=== PATIENT | female | born 1965 | race Caucasian/White ===

== ENCOUNTER → 2016-08-28 | Outpatient (REF) | payer BC ==
[~2016-08-28] MED LIST: ATEN100T PO; FISH100049 PO; OSTETAB3 PO; PERC5TAB6 PO; PROZ20CA11 PO; VITA-112 PO; ZYRT10CA PO
[2016-08-28 15:46] LABS: ALBUMIN 3.8 GM/DL (3.2-5.2); ALBUMIN/GLOBULIN RATIO 1.27 (1.00-1.93); ALKALINE PHOSPHATASE 99 U/L (45-117); ALT/SGPT 28 U/L (12-78); ANION GAP 9 MEQ/L (8-16); AST/SGOT 20 U/L (15-37); BILIRUBIN,TOTAL 0.3 MG/DL (0.2-1.0); BLOOD UREA NITROGEN 14 MG/DL (7-18); CALCIUM LEVEL 8.5 MG/DL (8.5-10.1); CARBON DIOXIDE LEVEL 26 MEQ/L (21-32); CHLORIDE LEVEL 106 MEQ/L (98-107); CHOLESTEROL LEVEL 209 MG/DL (<200); CREATININE FOR GFR 0.75 MG/DL (0.55-1.02); GLOMERULAR FILTRATION RATE > 60.0 (>58); GLUCOSE, FASTING 118 MG/DL (70-105); POTASSIUM SERUM 4.3 MEQ/L (3.5-5.1); SODIUM LEVEL 141 MEQ/L (136-145); TOTAL PROTEIN 6.8 GM/DL (6.4-8.2); TRIGLYCERIDES LEVEL 95 MG/DL (<150)
== END ==
LOC: M SFHCSACK 08:44
PROVIDERS: ATTEND Physician Assistant
DX: I10 Essential (primary) hypertension (principal); E78.2 Mixed hyperlipidemia; E55.9 Vitamin D deficiency, unspecified

== ENCOUNTER → 2017-01-31 | Outpatient (CLI) | payer BC, OTHER ==
[~2017-01-31] MED LIST changes: +PERC5TAB12 PO; -PERC5TAB6 PO
--- NOTE | 2017-01-31 16:26 | REPMRS ---
Patient History The patient states she had a clinical breast exam in January 2017. Family history of breast cancer in paternal grandmother at age 60. Digital Mammo Screening Bilat: January 31, 2017 - Exam #: [id number] Bilateral CC and MLO view(s) were taken. Technologist: Mely Elliott Technologist Prior study comparison: September 29, 2015, digital bilateral screening mammo performed at [facility]. FINDINGS: There are scattered fibroglandular densities. There has been no change in the appearance of the mammogram from the prior studies. There is a mild amount of residual fibroglandular tissue which is fairly symmetric. There is no interval development of dominant mass, architectural distortion, or clustered microcalcification suggestive of malignancy. ASSESSMENT: BI-RADS/ACR category 1 mammogram. Negative. Recommendation Routine screening mammogram in 1 year (for women over age 40). This mammogram was interpreted with the aid of an FDA-approved computer-aided dectection system. Electronically Signed By: Coleman Melgoza MD 01/31/17 [id number]
== END ==
LOC: M RAD 15:17
PROVIDERS: ATTEND Obstetrics & Gynecology
DX: Z12.31 Encounter for screening mammogram for malignant neoplasm of breast (principal)

== ENCOUNTER → 2017-02-26 | Outpatient (REF) | payer BC, OTHER ==
[2017-02-26 16:54] LABS: ALBUMIN 4.2 GM/DL (3.2-5.2); ALBUMIN/GLOBULIN RATIO 1.45 (1.00-1.93); ALKALINE PHOSPHATASE 100 U/L (45-117); ALT/SGPT 30 U/L (12-78); ANION GAP 9 MEQ/L (8-16); AST/SGOT 19 U/L (15-37); BILIRUBIN,TOTAL 0.4 MG/DL (0.2-1.0); BLOOD UREA NITROGEN 16 MG/DL (7-18); CALCIUM LEVEL 9.1 MG/DL (8.5-10.1); CARBON DIOXIDE LEVEL 28 MEQ/L (21-32); CHLORIDE LEVEL 106 MEQ/L (98-107); CHOLESTEROL LEVEL 224 MG/DL (<200); GLOMERULAR FILTRATION RATE > 60.0 (>51); GLUCOSE, FASTING 89 MG/DL (70-105); POTASSIUM SERUM 4.4 MEQ/L (3.5-5.1); SODIUM LEVEL 143 MEQ/L (136-145); TOTAL PROTEIN 7.1 GM/DL (6.4-8.2); TRIGLYCERIDES LEVEL 108 MG/DL (<150)
== END ==
LOC: M SFHCSACK 08:33
PROVIDERS: ATTEND Physician Assistant
DX: E78.2 Mixed hyperlipidemia (principal); I10 Essential (primary) hypertension; E55.9 Vitamin D deficiency, unspecified

== ENCOUNTER 2017-05-09 09:35 | Day surgery (SDC) | payer BC, OTHER ==
[~2017-05-09] VITALS: Ht 167.6 cm; Wt 79.7 kg
[2017-05-09] MEDS ORDERED: NS 1,000 ML IV ONE (11:00)
[2017-05-09] MEDS ORDERED: PROPOFOL 200 MG/20 ML VIAL As Ordered ONE (12:20)
[2017-05-09] MEDS ORDERED: LIDOCAINE 2% INJ 100 MG/5 ML SDV (FOR ANES.) As Ordered ONE (12:20)
--- NOTE | 2017-05-09 12:27 | ROOR ---
Patient Name: Cat Meza Procedure Date: 05/09/2017 12:14 PM Date of : 1965 Age: 52 Room: [facility] Gender: Female Note Status: Finalized Procedure: Colonoscopy Indications: Screening for colorectal malignant neoplasm Providers: Hayder BARROSO MD Referring MD: RADHA Daily Pa-c Requesting Provider: Medicines: Monitored Anesthesia Care Complications: No immediate complications. Procedure: Pre-Anesthesia Assessment: - The heart rate, respiratory rate, oxygen saturations, blood pressure, adequacy of pulmonary ventilation, and response to care were monitored throughout the procedure. The Colonoscope was introduced through the anus and advanced to the cecum, identified by appendiceal orifice and ileocecal valve. The colonoscopy was performed without difficulty. The patient tolerated the procedure well. The quality of the bowel preparation was good. Findings: The perianal and digital rectal examinations were normal. (Exam: Complete, Prep: Good or Excellent.) A 3 mm polyp was found in the ascending colon. The polyp was sessile. The polyp was removed with a cold snare. Resection and retrieval were complete. Mild diverticulosis and small internal hemorrhoids. The exam was otherwise without abnormality. Impression: - (Exam: Complete, Prep: Good or Excellent.) - One 3 mm polyp in the ascending colon, removed with a cold snare. Resected and retrieved. - Mild diverticulosis and small internal hemorrhoids. - The examination was otherwise normal. Recommendation: - Telephone endoscopist for pathology results in 2 weeks. - If the pathology report reveals adenomatous tissue, then repeat the colonoscopy for surveillance in 5 years. - If the pathology report indicates hyperplastic polyp, then repeat colonoscopy for screening purposes in 10 years. Hayder Barroso MD Hayder BARROSO MD 05/09/2017 12:26:44 PM This report has been signed electronically. Number of Addenda: 0 Note Initiated On: 05/09/2017 12:14 PM Estimated Blood Loss: Estimated blood loss: none.
[2017-05-09 13:01] VITALS: BP 136/97
== END 2017-05-09 13:00 | disposition home or self-care (01) ==
LOC: M OPP 09:35
PROVIDERS: ATTEND Internal Medicine Gastroenterology
DX: Z12.11 Encounter for screening for malignant neoplasm of colon (principal); D12.2 Benign neoplasm of ascending colon; K57.30 Diverticulosis of large intestine without perforation or abscess without bleeding; K64.8 Other hemorrhoids; I10 Essential (primary) hypertension; E78.5 Hyperlipidemia, unspecified; K58.0 Irritable bowel syndrome with diarrhea; M19.90 Unspecified osteoarthritis, unspecified site; F41.9 Anxiety disorder, unspecified; F32.9 Major depressive disorder, single episode, unspecified; Z88.8 Allergy status to other drugs, medicaments and biological substances; Z79.899 Other long term (current) drug therapy; Z80.6 Family history of leukemia

== ENCOUNTER → 2017-06-27 | Outpatient (REF) | payer OTHER ==
[2017-06-27 16:48] LABS: BASO % 0.3 % (0.0-1.0); HEMOGLOBIN 12.3 g/dl (12.0-16.0); IMMATURE GRANULOCYTE % 0.3 % (0-0); LYMPH % 29.2 % (24.0-44.0); MEAN CORPUSCULAR HEMOGLOBIN 29.7 pg (27.0-33.0); MEAN CORPUSCULAR HGB CONC 32.4 g/dl (32.0-36.5); MEAN CORPUSCULAR VOLUME 91.8 fl (80.0-96.0); MONO # 0.5 10^3/uL (0.0-0.8); MONO % 6.6 % (0.0-5.0); NEUTROPHILS # 4.3 10^3/uL (1.8-7.7); NEUTROPHILS % 63.6 % (36.0-66.0); PLATELET COUNT, AUTOMATED 257 10^3/uL (150-450); RED BLOOD COUNT 4.14 10^6/uL (4.00-5.40); RED CELL DISTRIBUTION WIDTH 13.8 % (11.5-14.5); WHITE BLOOD COUNT 6.8 10^3/uL (4.0-10.0)
[2017-06-27 21:07] LABS: ALBUMIN 3.7 GM/DL (3.2-5.2); ALBUMIN/GLOBULIN RATIO 1.16 (1.00-1.93); ALKALINE PHOSPHATASE 90 U/L (45-117); ALT/SGPT 29 U/L (12-78); ANION GAP 9 MEQ/L (8-16); AST/SGOT 16 U/L (7-37); BILIRUBIN,TOTAL 0.3 MG/DL (0.2-1.0); BLOOD UREA NITROGEN 10 MG/DL (7-18); CALCIUM LEVEL 8.5 MG/DL (8.5-10.1); CARBON DIOXIDE LEVEL 28 MEQ/L (21-32); CHLORIDE LEVEL 103 MEQ/L (98-107); CHOLESTEROL LEVEL 146 MG/DL (<200); CHOLESTEROL RISK RATIO 2.862 (<5); CREATININE FOR GFR 0.71 MG/DL (0.55-1.02); FREE T4 0.86 NG/DL (0.76-1.46); GLOMERULAR FILTRATION RATE > 60.0 (>51); GLUCOSE, FASTING 83 MG/DL (70-105); HDL CHOLESTEROL 51 MG/DL (>40); LDL CHOLESTEROL 71.2 MG/DL (<100); NON-HDL-C 95 MG/DL; POTASSIUM SERUM 4.2 MEQ/L (3.5-5.1); SODIUM LEVEL 140 MEQ/L (136-145); TOTAL PROTEIN 6.9 GM/DL (6.4-8.2); TRIGLYCERIDES LEVEL 119 MG/DL (<150)
== END ==
LOC: M SFHCSACK 10:19
DX: I10 Essential (primary) hypertension (principal); E78.2 Mixed hyperlipidemia; Z83.49 Family history of other endocrine, nutritional and metabolic diseases; E55.9 Vitamin D deficiency, unspecified

== ENCOUNTER → 2017-07-10 | Outpatient (CLI) | payer OTHER | LOC: M RAD 15:37 | DX: M17.0 Bilateral primary osteoarthritis of knee (principal) | CPT/HCPCS: 73564 ==

== ENCOUNTER → 2017-07-10 | Outpatient (CLI) | payer OTHER ==
[2017-07-12 14:15] LABS: TISSUE TRANSGLUTAMINASE IgA <2 U/mL (0-3)
== END ==
LOC: M LAB 15:33
DX: R19.4 Change in bowel habit (principal)
CPT/HCPCS: 82784

== ENCOUNTER → 2017-07-17 | Outpatient (CLI) | payer BC, OTHER | LOC: M RAD 06:39 | DX: R19.4 Change in bowel habit (principal); R10.9 Unspecified abdominal pain | CPT/HCPCS: 76705 ==

== ENCOUNTER → 2017-08-12 | Outpatient (CLI) | payer BC, OTHER ==
[~2017-08-12] MED LIST changes: -ATEN100T PO; -FISH100049 PO; +GLUCAGON FOR INJ 1 MG VIAL (J1610) As Ordered; +ISOVUE-370 76% 100ML VIAL (Q9967) As Ordered; -OSTETAB3 PO; -PERC5TAB12 PO; -PROZ20CA11 PO; -VITA-112 PO; +VoLumen 0.1% SUSPENSION 450ML BOTTLE As Ordered; -ZYRT10CA PO
== END ==
LOC: M RAD 13:29
DX: R19.7 Diarrhea, unspecified (principal); R10.10 Upper abdominal pain, unspecified

== ENCOUNTER → 2017-08-19 | Outpatient (REF) | payer OTHER | LOC: M LAB REF 09:58 | DX: R19.7 Diarrhea, unspecified (principal); R10.10 Upper abdominal pain, unspecified ==

== ENCOUNTER → 2018-01-05 | Outpatient (REF) | payer OTHER ==
[2018-01-05 14:36] LABS: BASO % 0.3 % (0.0-1.0); HEMATOCRIT 37.2 % (36.0-47.0); HEMOGLOBIN 12.3 g/dl (12.0-15.5); IMMATURE GRANULOCYTE % 0.3 % (0-3.0); LYMPH # 2.2 10^3/uL (1.5-4.5); LYMPH % 34.7 % (24.0-44.0); MEAN CORPUSCULAR HEMOGLOBIN 30.1 pg (27.0-33.0); MEAN CORPUSCULAR HGB CONC 33.1 g/dl (32.0-36.5); MEAN CORPUSCULAR VOLUME 91.2 fl (80.0-96.0); MONO # 0.5 10^3/uL (0.0-0.8); NEUTROPHILS # 3.7 10^3/uL (1.8-7.7); NEUTROPHILS % 57.7 % (36.0-66.0); PLATELET COUNT, AUTOMATED 220 10^3/uL (150-450); RED BLOOD COUNT 4.08 10^6/uL (4.00-5.40); RED CELL DISTRIBUTION WIDTH 13.7 % (11.5-14.5); WHITE BLOOD COUNT 6.4 10^3/uL (4.0-10.0)
[2018-01-05 15:14] LABS: ALBUMIN/GLOBULIN RATIO 1.25 (1.00-1.93); ALKALINE PHOSPHATASE 105 U/L (45-117); ALT/SGPT 55 U/L (12-78); ANION GAP 8 MEQ/L (8-16); AST/SGOT 31 U/L (7-37); BILIRUBIN,TOTAL 0.4 MG/DL (0.2-1.0); BLOOD UREA NITROGEN 16 MG/DL (7-18); CALCIUM LEVEL 8.9 MG/DL (8.5-10.1); CARBON DIOXIDE LEVEL 29 MEQ/L (21-32); CHLORIDE LEVEL 105 MEQ/L (98-107); CREATININE FOR GFR 0.75 MG/DL (0.55-1.30); GLOMERULAR FILTRATION RATE > 60.0 (>51); GLUCOSE, FASTING 82 MG/DL (70-100); POTASSIUM SERUM 4.6 MEQ/L (3.5-5.1); SODIUM LEVEL 142 MEQ/L (136-145); TOTAL PROTEIN 7.2 GM/DL (6.4-8.2)
== END ==
LOC: M SFHCSACK 09:15
DX: I10 Essential (primary) hypertension (principal); E78.2 Mixed hyperlipidemia

== ENCOUNTER → 2018-09-15 | Outpatient (REF) | payer OTHER ==
[~2018-09-15] MED LIST changes: +ATEN100T PO; +FISH100049 PO; -GLUCAGON FOR INJ 1 MG VIAL (J1610) As Ordered; -ISOVUE-370 76% 100ML VIAL (Q9967) As Ordered; +MECL-68 PO; +MOBI4TAB PO; +ONDA4TAB6 PO; +OSTETAB3 PO; +PERC5TAB12 PO; +PROZ20CA11 PO; +SIMV20TA2 PO; +TOPA1TAB PO; +VITA-112 PO; -VoLumen 0.1% SUSPENSION 450ML BOTTLE As Ordered; +ZYRT10CA PO
[2018-09-15 11:24] LABS: BASO % 0.5 % (0.0-1.0); HEMATOCRIT 38.8 % (36.0-47.0); HEMOGLOBIN 12.6 g/dl (12.0-15.5); LYMPH % 33.4 % (24.0-44.0); MEAN CORPUSCULAR HEMOGLOBIN 29.9 pg (27.0-33.0); MEAN CORPUSCULAR HGB CONC 32.5 g/dl (32.0-36.5); MEAN CORPUSCULAR VOLUME 92.2 fl (80.0-96.0); MONO # 0.4 10^3/uL (0.0-0.8); MONO % 6.8 % (0.0-5.0); NEUTROPHILS # 3.5 10^3/uL (1.8-7.7); PLATELET COUNT, AUTOMATED 195 10^3/uL (150-450); RED BLOOD COUNT 4.21 10^6/uL (4.00-5.40)
[2018-09-15 11:37] LABS: ALBUMIN 3.8 GM/DL (3.2-5.2); ALT/SGPT 34 U/L (12-78); BILIRUBIN,TOTAL 0.3 MG/DL (0.2-1.0); BLOOD UREA NITROGEN 16 MG/DL (7-18); CALCIUM LEVEL 8.9 MG/DL (8.5-10.1); CARBON DIOXIDE LEVEL 29 MEQ/L (21-32); CHLORIDE LEVEL 107 MEQ/L (98-107); CHOLESTEROL LEVEL 162 MG/DL (<200); CHOLESTEROL RISK RATIO 2.945 (<5); GLOMERULAR FILTRATION RATE > 60.0 (>51); GLUCOSE, FASTING 96 MG/DL (70-100); HDL CHOLESTEROL 55 MG/DL (>40); LDL CHOLESTEROL 88 MG/DL (<100); NON-HDL-C 107 MG/DL; POTASSIUM SERUM 4.4 MEQ/L (3.5-5.1); SODIUM LEVEL 140 MEQ/L (136-145); TOTAL 25(OH) VITAMIN D 29.2 NG/ML (30.0-100.0); TOTAL PROTEIN 6.6 GM/DL (6.4-8.2); TRIGLYCERIDES LEVEL 94 MG/DL (<150)
== END ==
LOC: M SFHCCLAY 07:17
PROVIDERS: ATTEND Physician Assistant
DX: I10 Essential (primary) hypertension (principal); E78.2 Mixed hyperlipidemia; Z83.49 Family history of other endocrine, nutritional and metabolic diseases; E55.9 Vitamin D deficiency, unspecified

== ENCOUNTER → 2019-03-29 | Outpatient (REF) | payer OTHER ==
[2019-03-29 11:23] LABS: BASO % 0.5 % (0.0-1.0); EOS % 0.2 % (0.0-3.0); HEMATOCRIT 38.6 % (36.0-47.0); HEMOGLOBIN 12.7 g/dl (12.0-15.5); LYMPH % 30.5 % (24.0-44.0); MEAN CORPUSCULAR HEMOGLOBIN 30.7 pg (27.0-33.0); MEAN CORPUSCULAR HGB CONC 32.9 g/dl (32.0-36.5); MEAN CORPUSCULAR VOLUME 93.2 fl (80.0-96.0); MONO # 0.5 10^3/uL (0.0-0.8); MONO % 7.1 % (0.0-5.0); NEUTROPHILS # 4.1 10^3/uL (1.5-8.5); NEUTROPHILS % 61.4 % (36.0-66.0); PLATELET COUNT, AUTOMATED 184 10^3/uL (150-450); RED BLOOD COUNT 4.14 10^6/uL (4.00-5.40); WHITE BLOOD COUNT 6.6 10^3/uL (4.0-10.0)
[2019-03-29 11:32] LABS: ALBUMIN 3.7 GM/DL (3.2-5.2); ALT/SGPT 27 U/L (12-78); BILIRUBIN,TOTAL 0.4 MG/DL (0.2-1.0); BLOOD UREA NITROGEN 17 MG/DL (7-18); CALCIUM LEVEL 8.6 MG/DL (8.5-10.1); CARBON DIOXIDE LEVEL 27 MEQ/L (21-32); CHLORIDE LEVEL 107 MEQ/L (98-107); CHOLESTEROL LEVEL 159 MG/DL (<200); CHOLESTEROL RISK RATIO 2.789 (<5); CREATININE FOR GFR 0.72 MG/DL (0.55-1.30); GLOMERULAR FILTRATION RATE > 60.0 (>51); GLUCOSE, FASTING 89 MG/DL (70-100); HDL CHOLESTEROL 57 MG/DL (>40); LDL CHOLESTEROL 82 MG/DL (<100); NON-HDL-C 102 MG/DL; POTASSIUM SERUM 4.4 MEQ/L (3.5-5.1); SODIUM LEVEL 140 MEQ/L (136-145); TOTAL PROTEIN 6.9 GM/DL (6.4-8.2); TRIGLYCERIDES LEVEL 102 MG/DL (<150)
[2019-03-29 11:41] LABS: TOTAL 25(OH) VITAMIN D 52.3 NG/ML (30.0-100.0)
== END ==
LOC: M SFHCCLAY 08:08
PROVIDERS: ATTEND Physician Assistant
DX: I10 Essential (primary) hypertension (principal); E78.2 Mixed hyperlipidemia; E55.9 Vitamin D deficiency, unspecified

== ENCOUNTER → 2019-04-20 | Outpatient (REF) | payer OTHER ==
[2019-04-20 18:03] LABS: BLOOD UREA NITROGEN 13 MG/DL (7-18); CREATININE FOR GFR 0.78 MG/DL (0.55-1.30); GLOMERULAR FILTRATION RATE > 60.0 (>51); RHEUMATOID FACTOR QUANT 11.8 IU/ML (<15.0); TOTAL PROTEIN 7.1 GM/DL (6.4-8.2)
[2019-04-20 18:14] LABS: TOTAL 25(OH) VITAMIN D 43.7 NG/ML (30.0-100.0)
[2019-04-20 18:15] LABS: FOLATE 8.9 NG/ML; VITAMIN B12 LEVEL 384 PG/ML
[2019-04-22 11:11] LABS: ALBUMIN % 63.4 % (55.8-66.1); ALPHA-1-GLOBULINS 0.28 GM/DL (0.17-0.41); ALPHA-2-GLOBULINS 0.67 GM/DL (0.42-0.99); ALPHA-2-GLOBULINS % 9.4 % (7.1-11.8); BETA-1-GLOBULINS % 5.7 % (4.7-7.2); BETA-2-GLOBULINS 0.34 GM/DL (0.19-0.55); BETA-2-GLOBULINS % 4.8 % (3.2-6.5); GAMMA GLOBULIN % 12.7 % (11.1-18.8)
== END ==
LOC: M LABNEURO 14:16
PROVIDERS: ATTEND Psychiatry & Neurology Neurology
DX: R26.9 Unspecified abnormalities of gait and mobility (principal); Z91.81 History of falling

== ENCOUNTER → 2019-10-29 | Outpatient (REF) | payer OTHER ==
[~2019-10-29] MED LIST changes: -MECL-68 PO; +MECL1TAB31 PO; -SIMV20TA2 PO; +SIMV20TA22 PO
[2019-10-29 12:11] LABS: BASO % 0.4 % (0.0-1.0); EOS % 0.2 % (0.0-3.0); HEMATOCRIT 40.4 % (36.0-47.0); HEMOGLOBIN 13.4 g/dl (12.0-15.5); LYMPH # 1.6 10^3/uL (1.5-5.0); LYMPH % 29.5 % (24.0-44.0); MEAN CORPUSCULAR HEMOGLOBIN 30.5 pg (27.0-33.0); MEAN CORPUSCULAR HGB CONC 33.2 g/dl (32.0-36.5); MEAN CORPUSCULAR VOLUME 91.8 fl (80.0-96.0); MONO # 0.5 10^3/uL (0.0-0.8); MONO % 8.5 % (0.0-5.0); NEUTROPHILS # 3.4 10^3/uL (1.5-8.5); NEUTROPHILS % 61.2 % (36.0-66.0); PLATELET COUNT, AUTOMATED 198 10^3/uL (150-450); WHITE BLOOD COUNT 5.6 10^3/uL (4.0-10.0)
[2019-10-29 12:35] LABS: TOTAL 25(OH) VITAMIN D 64.9 NG/ML (30.0-100.0)
[2019-10-29 12:48] LABS: ALT/SGPT 41 U/L (12-78); BILIRUBIN,TOTAL 0.4 MG/DL (0.2-1.0); BLOOD UREA NITROGEN 22 MG/DL (7-18); CALCIUM LEVEL 9.2 MG/DL (8.5-10.1); CARBON DIOXIDE LEVEL 27 MEQ/L (21-32); CHLORIDE LEVEL 106 MEQ/L (98-107); CHOLESTEROL LEVEL 150 MG/DL (<200); CHOLESTEROL RISK RATIO 2.727 (<5); GLOMERULAR FILTRATION RATE > 60.0 (>51); GLUCOSE, FASTING 90 MG/DL (70-100); HDL CHOLESTEROL 55 MG/DL (>40); LDL CHOLESTEROL 79 MG/DL (<100); NON-HDL-C 95 MG/DL; POTASSIUM SERUM 4.5 MEQ/L (3.5-5.1); SODIUM LEVEL 140 MEQ/L (136-145); TOTAL PROTEIN 7.2 GM/DL (6.4-8.2); TRIGLYCERIDES LEVEL 82 MG/DL (<150)
== END ==
LOC: M SFHCCLAY 08:11
PROVIDERS: ATTEND Physician Assistant
DX: I10 Essential (primary) hypertension (principal); E78.2 Mixed hyperlipidemia; F41.8 Other specified anxiety disorders; E55.9 Vitamin D deficiency, unspecified

== ENCOUNTER → 2020-03-25 | Outpatient (REF) | payer OTHER ==
[2020-03-25 14:08] LABS: APPEARANCE, URINE CLEAR (CLEAR); BACTERIA, URINE AUTO 1+ (NEGATIVE); BILIRUBIN, URINE AUTO NEGATIVE (NEGATIVE); BLOOD, URINE BLOOD NEGATIVE (NEGATIVE); COLOR, URINE COLORLESS (YELLOW); GLUCOSE, URINE (UA) AUTO NEGATIVE (NEGATIVE); KETONE, URINE AUTO NEGATIVE (NEGATIVE); LEUKOCYTE ESTERASE, URINE AUTO NEGATIVE (NEGATIVE); NITRITE, URINE AUTO NEGATIVE (NEGATIVE); PROTEIN, URINE AUTO NEGATIVE (NEGATIVE); RBC, URINE AUTO 0 /HPF (0-3); SPECIFIC GRAVITY URINE AUTO 1.001 (1.002-1.035); SQUAMOUS EPITHELIAL CELL UR AU 1 /HPF (0-6); UROBILINOGEN, URINE AUTO 0.2 mg/dL (0.0-2.0); WBC, URINE AUTO 0 /HPF (0-3)
== END ==
LOC: M LAB REF 11:20
PROVIDERS: ATTEND Physician Assistant Medical
DX: N39.0 Urinary tract infection, site not specified (principal)

== ENCOUNTER → 2020-03-29 | Outpatient (CLI) | payer BC, OTHER ==
--- NOTE | 2020-03-29 14:28 | REP ---
INDICATION: GENERALIZED ABDOMINAL PAIN COMPARISON: None. TECHNIQUE: Upright view of the chest with supine and upright views of the abdomen and pelvis. FINDINGS: Frontal upright view of the chest demonstrates no acute cardiopulmonary process or free air below the diaphragm to suspect pneumoperitoneum. Supine and upright views of the abdomen and pelvis demonstrate nonspecific bowel gas pattern without obstruction or perforation. No organomegaly. No abnormal calcifications. Skeletal structures normal for age. IMPRESSION: Nonspecific bowel gas pattern. <Electronically signed by Faizan Palmer > 03/29/20 [id number]
[2020-03-29 14:47] LABS: BASO % 0.3 % (0.0-1.0); EOS % 0.2 % (0.0-3.0); HEMATOCRIT 40.7 % (36.0-47.0); LYMPH % 32.6 % (24.0-44.0); MEAN CORPUSCULAR HGB CONC 31.9 g/dl (32.0-36.5); MEAN CORPUSCULAR VOLUME 90.8 fl (80.0-96.0); MONO # 0.5 10^3/uL (0.0-0.8); MONO % 7.4 % (0.0-5.0); NEUTROPHILS # 3.7 10^3/uL (1.5-8.5); NEUTROPHILS % 59.2 % (36.0-66.0); PLATELET COUNT, AUTOMATED 227 10^3/uL (150-450); RED BLOOD COUNT 4.48 10^6/uL (4.00-5.40); WHITE BLOOD COUNT 6.3 10^3/uL (4.0-10.0)
[2020-03-29 15:18] LABS: BLOOD UREA NITROGEN 13 MG/DL (7-18); CARBON DIOXIDE LEVEL 31 MEQ/L (21-32); CHLORIDE LEVEL 103 MEQ/L (98-107); CREATININE FOR GFR 0.76 MG/DL (0.55-1.30); GLOMERULAR FILTRATION RATE > 60.0 (>51); GLUCOSE, FASTING 76 MG/DL (70-100); POTASSIUM SERUM 4.6 MEQ/L (3.5-5.1); SODIUM LEVEL 138 MEQ/L (136-145)
[2020-03-29 15:19] LABS: ALBUMIN 4.2 GM/DL (3.2-5.2); ALT/SGPT 29 U/L (12-78); AMYLASE 64 U/L (25-115); BILIRUBIN,TOTAL 0.5 MG/DL (0.2-1.0); CALCIUM LEVEL 9.9 MG/DL (8.5-10.1); LIPASE 342 U/L (73-393); TOTAL PROTEIN 7.8 GM/DL (6.4-8.2)
== END ==
LOC: M LAB 13:29
PROVIDERS: ATTEND Physician Assistant Medical
DX: R10.84 Generalized abdominal pain (principal); R19.7 Diarrhea, unspecified; R11.0 Nausea

== ENCOUNTER → 2020-03-31 | Outpatient (REF) | payer BC, OTHER | LOC: M LAB REF 16:29 | PROVIDERS: ATTEND Physician Assistant Medical | DX: R19.7 Diarrhea, unspecified (principal) ==

== ENCOUNTER → 2020-04-10 | Outpatient (CLI) | payer BC, OTHER ==
[~2020-04-10] MED LIST changes: +GASTROGRAFIN SOLUTION 30ML (Q9963) As Ordered ONE; +ISOVUE-370 76% 100ML VIAL As Ordered ONE
--- NOTE | 2020-04-10 13:32 | REP ---
INDICATION: GENERALIZED ABDONIMAL PAIN FILE ROOM. COMPARISON: CT enterography 08/12/2017 abdominal series 03/29/2020 TECHNIQUE: Isovue 371 mL given by IV with scanning through the abdomen and pelvis before and after contrast. Pole Gastrografin 10 mL and 290 mL flavum water for 2 doses per our protocol. FINDINGS: CT abdomen: Of the lung bases show minor dependent atelectatic changes but are otherwise clear there is no hiatal hernia. Stomach well distended with oral contrast contrast seen throughout small bowel loops and into the sigmoid. There is no fatty change liver. I see no hepatosplenomegaly, focal or Paddock mass, intrahepatic biliary dilatation or adjacent ascites. Gallbladder without calcified stone or mass. Pancreas is unremarkable. Adrenal glands are normal. Kidneys show symmetric enhancement without mass, cyst, stone or hydronephrosis. The aorta is without aneurysm or dissection. Small bowel loops are contrast or fluid-filled but not abnormally dilated and showing no air-fluid levels. Appears to be some thickening of the wall of the distal and terminal ileum into the ileocecal valve region I do not see pathologic adenopathy about the pericecal region. Evidence for prior appendectomy. There is no pathologic sized periaortic, mesenteric or other retroperitoneal adenopathy evident. Is no free fluid in the abdomen or free air. Bone windows show lumbar and lower thoracic vertebral bodies and posterior elements grossly intact and normal for age. Visualized ribs intact CT pelvis: Sacrum, SI joints and left iliac wing or unremarkable the right iliac bone has a small sclerotic bone island in its mid portion adjacent to the sacrum. This is stable has steadily hips and pubic bone unremarkable the distal left colon and sigmoid show some scattered diverticula without signs of diverticulitis. Some muscular hypertrophy also suggested. Uterus absent there is no mass about the vaginal cuff. No pelvic mass or free fluid. Small bowel loops without dilatation. The distal ileum and terminal ileum shows some slight wall thickening as a nonspecific finding no adjacent inflammatory change no ventral or inguinal hernia no pathologic sized inguinal adenopathy. No deep pelvic adenopathy. IMPRESSION: 1. Some mild thickening of the wall of the distal and terminal ileum without adjacent inflammatory change. This may reflect some very mild inflammatory bowel disease involving the terminal ileum. No adjacent adenopathy or fluid collections. Remainder of small bowel intact 2. The left colon and sigmoid showed some diverticulosis and muscular hypertrophy without diverticulitis the colitis stricture or mass 3. No other significant findings. <Electronically signed by Dilan Hubbard > 04/10/20 [id number]
== END ==
LOC: M RAD 08:04
PROVIDERS: ATTEND Physician Assistant Medical
DX: R10.9 Unspecified abdominal pain (principal)

== ENCOUNTER → 2020-05-02 | Outpatient (CLI) | payer BC ==
[~2020-05-02] MED LIST changes: -GASTROGRAFIN SOLUTION 30ML (Q9963) As Ordered ONE; -ISOVUE-370 76% 100ML VIAL As Ordered ONE
--- NOTE | 2020-05-02 15:42 | REP ---
INDICATION: JHON SCR MAMMO/Z12.39. COMPARISON: 01/31/2017 and 09/29/2015. TECHNIQUE: MLO and CC views of both breasts performed with tomosynthesis. FINDINGS: There is mild fibroglandular tissue scattered bilaterally. There is no change in the parenchymal pattern with no new mass or architectural distortion. Few tiny calcifications are seen posterolaterally in the left breast, for which magnification views are recommended. The Volpara volumetric breast density pattern is A. IMPRESSION: BIRADS/ACR category 0 incomplete. Few tiny calcifications posterolaterally in the left breast. Recommend magnification views to further evaluate. This patient's Tyrer-Cuzick lifetime breast cancer risk assessment score is 14.9%. Family history of breast cancer at age 60 in paternal grandmother. This mammogram was interpreted with the aid of an FDA-approved computer-aided detection system. The patient states she had a clinical breast exam in October 2019. The patient letter being requested is M0. RECOMMENDATION: Recommend magnification views left breast. <Electronically signed by Coleman Melgoza > 05/02/20 [id number]
== END ==
LOC: M WHC 14:23
PROVIDERS: ATTEND Physician Assistant
DX: R92.2 Inconclusive mammogram (principal)

== ENCOUNTER → 2020-05-10 | Outpatient (CLI) | payer BC ==
[~2020-05-10] MED LIST changes: +CETI-24 PO
--- NOTE | 2020-05-10 17:01 | REP ---
INDICATION: ADDITIONA VIEWS LT BREAST. Screening mammography May 02, 2020 was BI-RADS category 0 because of a possible micro calcific loop grouping in the upper outer quadrant on the left. Diagnostic imaging was recommended. COMPARISON: May 02, 2020 and January 31, 2017 prior mammography is reviewed. TECHNIQUE: Magnified focal spot-compression CC, true mediolateral, and mediolateral oblique views are obtained of the left breast. FINDINGS: Scattered fibroglandular elements are seen. There are 4-5 punctate microcalcifications confirmed in a grouping in the upper outer quadrant of the left breast middle to posterior 3rd. This is not visible on the 2017 prior study. It must be considered as somewhat suspicious. No other mammographic findings. IMPRESSION: BIRADS/ACR category 4 suspicious left breast mammogram . micro calcific grouping upper-outer quadrant.. This patient's Tyrer-Cuzick lifetime breast cancer risk assessment score is 14.9%. RECOMMENDATION: Stereotactic needle biopsy procedure recommended left breast 4 micro calcific grouping. Clip placement and post clip placement left breast mammography recommended.. The patient letter being requested is M4. <Electronically signed by Ron Gu > 05/10/20 [id number]
== END ==
LOC: M WHC 13:58
PROVIDERS: ATTEND Physician Assistant
DX: R92.8 Other abnormal and inconclusive findings on diagnostic imaging of breast (principal)

== ENCOUNTER → 2020-05-14 | Outpatient (CLI) | payer BC, OTHER ==
[~2020-05-14] MED LIST changes: +TOPI50TA9 PO
== END ==
LOC: M LABSMTC 09:22
PROVIDERS: ATTEND Anesthesiology
DX: Z11.59 Encounter for screening for other viral diseases (principal)

== ENCOUNTER 2020-05-19 09:03 | Day surgery (SDC) | payer BC, OTHER ==
[~2020-05-19] VITALS: Ht 167.6 cm; Wt 78.9 kg
[~2020-05-19 09:03] MED LIST changes: +NS 1,000 ML IV ONE
[2020-05-19] MEDS ORDERED: LIDOCAINE 2% 100MG/5ML SDV (FOR ANES.) As Ordered ONE (11:00)
[2020-05-19] MEDS ORDERED: propofoL 200 MG/20 ML VIAL As Ordered ONE (11:00)
--- NOTE | 2020-05-19 12:00 | ROOR ---
Patient Name: Cat Burgess Procedure Date: 05/19/2020 11:32 AM Date of : 1965 Age: 55 Room: [facility] Gender: Female Note Status: Finalized Procedure: Colonoscopy Indications: Exclusion of ulcerative colitis, Exclusion of Crohn's disease, Abnormal CT of the GI tract, Irritable bowel syndrome with diarrhea Providers: Hayder ASHRAF MD Referring MD: RADHA Retana pa-c Requesting Provider: Medicines: Monitored Anesthesia Care Complications: No immediate complications. Procedure: Pre-Anesthesia Assessment: - The heart rate, respiratory rate, oxygen saturations, blood pressure, adequacy of pulmonary ventilation, and response to care were monitored throughout the procedure. The Colonoscope was introduced through the anus and advanced to 20 cm into the ileum. The colonoscopy was performed without difficulty. The patient tolerated the procedure well. The quality of the bowel preparation was good. Findings: The perianal and digital rectal examinations were normal. The terminal ileum appeared normal. Multiple medium-mouthed diverticula were found in the sigmoid colon. The exam was otherwise normal throughout the examined colon. Biopsies for histology were taken with a cold forceps from the colon and terminal ileum for evaluation of microscopic colitis. Impression: - The examined portion of the ileum was normal. - Mild diverticulosis in the sigmoid colon. and small internal hemorrhoids. - The colon was otherwise normal. (- There is no visual evidence of colitis or enteritis in the entire colon and terminal ileum up to 20 cm) - Biopsies were taken with a cold forceps from the colon and terminal ileum for evaluation of microscopic colitis. Recommendation: - Telephone endoscopist for pathology results in 2 weeks. Procedure Code(s): --- Professional --- 70967, Colonoscopy, flexible; with biopsy, single or multiple Diagnosis Code(s): --- Professional --- R93.3, Abnormal findings on diagnostic imaging of other parts of digestive tract K57.30, Diverticulosis of large intestine without perforation or abscess without bleeding CPT copyright 2019 [employer]. All rights reserved. The codes documented in this report are preliminary and upon relief pilot review may be revised to meet current compliance requirements. Hayder Ashraf MD Hayder ASHRAF MD 05/19/2020 12:00:12 PM Electronically signed by Hayder ASHRAF MD Number of Addenda: 0 Note Initiated On: 05/19/2020 11:32 AM Estimated Blood Loss: Estimated blood loss: none.
[2020-05-19 12:34] VITALS: BP 108/74
== END 2020-05-19 12:31 | disposition home or self-care (01) ==
LOC: M OPP 09:03
PROVIDERS: ATTEND Internal Medicine Gastroenterology
DX: K57.30 Diverticulosis of large intestine without perforation or abscess without bleeding (principal); K64.8 Other hemorrhoids; R93.3 Abnormal findings on diagnostic imaging of other parts of digestive tract; Z79.899 Other long term (current) drug therapy; Z88.8 Allergy status to other drugs, medicaments and biological substances

== ENCOUNTER → 2020-06-10 | Outpatient (CLI) | payer SELFPAY ==
[~2020-06-10] MED LIST changes: -NS 1,000 ML IV ONE
== END ==
LOC: M LABSMTC 08:41
PROVIDERS: ATTEND Pediatrics
DX: Z20.828 Contact with and (suspected) exposure to other viral communicable diseases (principal)

== ENCOUNTER → 2020-06-19 | Outpatient (REF) | payer OTHER ==
[2020-06-19 12:24] LABS: BASO % 0.4 % (0.0-1.0); EOS % 0.1 % (0.0-3.0); HEMATOCRIT 41.8 % (36.0-47.0); HEMOGLOBIN 13.1 g/dl (12.0-15.5); LYMPH # 2.2 10^3/uL (1.5-5.0); LYMPH % 33.2 % (24.0-44.0); MEAN CORPUSCULAR HEMOGLOBIN 29.5 pg (27.0-33.0); MEAN CORPUSCULAR HGB CONC 31.3 g/dl (32.0-36.5); MEAN CORPUSCULAR VOLUME 94.1 fl (80.0-96.0); MONO # 0.5 10^3/uL (0.0-0.8); PLATELET COUNT, AUTOMATED 245 10^3/uL (150-450); RED BLOOD COUNT 4.44 10^6/uL (4.00-5.40); WHITE BLOOD COUNT 6.7 10^3/uL (4.0-10.0)
[2020-06-19 13:09] LABS: ALBUMIN 4.2 GM/DL (3.2-5.2); ALT/SGPT 39 U/L (12-78); BILIRUBIN,TOTAL 0.3 MG/DL (0.2-1.0); BLOOD UREA NITROGEN 17 MG/DL (7-18); CALCIUM LEVEL 8.9 MG/DL (8.5-10.1); CARBON DIOXIDE LEVEL 29 MEQ/L (21-32); CHLORIDE LEVEL 105 MEQ/L (98-107); CHOLESTEROL LEVEL 180 MG/DL (<200); CHOLESTEROL RISK RATIO 2.686 (<5); CREATININE FOR GFR 0.88 MG/DL (0.55-1.30); GLOMERULAR FILTRATION RATE > 60.0 (>51); GLUCOSE, FASTING 95 MG/DL (70-100); HDL CHOLESTEROL 67 MG/DL (>40); LDL CHOLESTEROL 93 MG/DL (<100); NON-HDL-C 113 MG/DL; POTASSIUM SERUM 4.4 MEQ/L (3.5-5.1); SODIUM LEVEL 141 MEQ/L (136-145); TRIGLYCERIDES LEVEL 98 MG/DL (<150)
[2020-06-19 13:11] LABS: TOTAL 25(OH) VITAMIN D 40.5 NG/ML (30.0-100.0)
== END ==
LOC: M SFHCCLAY 07:13
PROVIDERS: ATTEND Physician Assistant
DX: E55.9 Vitamin D deficiency, unspecified (principal); I10 Essential (primary) hypertension

== ENCOUNTER → 2021-01-08 | Outpatient (CLI) | payer BC, OTHER | LOC: M SOG 08:40 | PROVIDERS: ATTEND Orthopaedic Surgery Sports Medicine | DX: M75.42 Impingement syndrome of left shoulder (principal) ==

== ENCOUNTER → 2021-04-09 | Outpatient (CLI) | payer BC, OTHER ==
--- NOTE | 2021-04-09 16:45 | REP ---
INDICATION: IMPINGEMENT SYNDROME LT SHOULDER ? RTC. COMPARISON: None. TECHNIQUE: Coronal oblique T1 and fat suppressed T2. Sagittal oblique fat suppressed T2. Axial [id number] and T2 FLASH. FINDINGS: The acromioclavicular joint is within normal limits. The acromion process is type 2. There is mild patchy T2 hyper signal seen in the supraspinatus tendon. There is no supraspinatus musculotendinous retraction or significant atrophy. There is mild patchy T2 hyper signal in the subscapularis tendon. The teres minor and infraspinatus tendons are unremarkable in appearance. The biceps tendon resides within the bicipital groove. There is no glenohumeral joint effusion. There is a tiny amount of fluid in the subcoracoid recess. The coracoacromial and coracohumeral ligaments appear somewhat thickened particularly the coracoacromial ligament. IMPRESSION: There is mild supraspinatus and subscapularis tendinitis/tendinosis as described above. Although there is no significant AC joint DJD and the acromion process is type 2 rather than type 3 there is evidence of ligamentous thickening, as described above, which is consistent with the clinical diagnosis of impingement syndrome. <Electronically signed by Misha Diez > 04/09/21 [id number]
== END ==
LOC: M PLAIMG 15:30
PROVIDERS: ATTEND Orthopaedic Surgery Sports Medicine
DX: M75.42 Impingement syndrome of left shoulder (principal)

== ENCOUNTER → 2021-07-31 | Outpatient (REF) | payer OTHER | LOC: M SFHCCAPE 14:28 | PROVIDERS: ATTEND Physician Assistant | DX: J22 Unspecified acute lower respiratory infection (principal) ==

== ENCOUNTER → 2021-08-16 | Outpatient (CLI) | payer BC, OTHER | LOC: M SLEEP 20:00 | PROVIDERS: ATTEND Nurse Practitioner Adult Health | DX: G47.33 Obstructive sleep apnea (adult) (pediatric) (principal) ==

== ENCOUNTER → 2021-09-24 | Outpatient (REF) | payer OTHER ==
[2021-09-24 17:16] LABS: ALBUMIN 3.7 GM/DL (3.2-5.2); ALT/SGPT 95 U/L (12-78); BILIRUBIN,TOTAL 0.6 MG/DL (0.2-1.0); BLOOD UREA NITROGEN 10 MG/DL (7-18); CALCIUM LEVEL 8.5 MG/DL (8.5-10.1); CARBON DIOXIDE LEVEL 26 MEQ/L (21-32); CHLORIDE LEVEL 108 MEQ/L (98-107); CHOLESTEROL LEVEL 130 MG/DL (<200); CHOLESTEROL RISK RATIO 3.714 (<5); GLOMERULAR FILTRATION RATE > 60.0 (>51); GLUCOSE, FASTING 101 MG/DL (70-100); HDL CHOLESTEROL 35 MG/DL (>40); LDL CHOLESTEROL 67 MG/DL (<100); NON-HDL-C 95 MG/DL; POTASSIUM SERUM 4.1 MEQ/L (3.5-5.1); SODIUM LEVEL 140 MEQ/L (136-145); TOTAL 25(OH) VITAMIN D 53.2 NG/ML (30.0-100.0); TOTAL PROTEIN 6.7 GM/DL (6.4-8.2); TRIGLYCERIDES LEVEL 139 MG/DL (<150)
== END ==
LOC: M SFHCCAPE 07:13
PROVIDERS: ATTEND Physician Assistant
DX: I10 Essential (primary) hypertension (principal)

== ENCOUNTER → 2021-10-31 | Outpatient (CLI) | payer BC, OTHER | LOC: M SLEEP 20:00 | PROVIDERS: ATTEND Nurse Practitioner Adult Health | DX: G47.33 Obstructive sleep apnea (adult) (pediatric) (principal) ==

== ENCOUNTER → 2021-12-24 | Outpatient (REF) | payer OTHER ==
[2021-12-24 16:10] LABS: BASO % 0.2 % (0.0-1.0); HEMATOCRIT 37.5 % (36.0-47.0); HEMOGLOBIN 12.1 g/dl (12.0-15.5); LYMPH # 1.7 10^3/uL (1.5-5.0); MEAN CORPUSCULAR HEMOGLOBIN 29.2 pg (27.0-33.0); MEAN CORPUSCULAR HGB CONC 32.3 g/dl (32.0-36.5); MEAN CORPUSCULAR VOLUME 90.6 fl (80.0-96.0); MONO # 0.4 10^3/uL (0.0-0.8); NEUTROPHILS # 2.1 10^3/uL (1.5-8.5); NEUTROPHILS % 50.6 % (36.0-66.0); PLATELET COUNT, AUTOMATED 193 10^3/uL (150-450); RED BLOOD COUNT 4.14 10^6/uL (4.00-5.40); WHITE BLOOD COUNT 4.2 10^3/uL (4.0-10.0)
[2021-12-24 17:00] LABS: ALBUMIN 3.9 GM/DL (3.2-5.2); ALT/SGPT 49 U/L (12-78); BILIRUBIN,TOTAL 0.4 MG/DL (0.2-1.0); BLOOD UREA NITROGEN 16 MG/DL (7-18); CALCIUM LEVEL 8.8 MG/DL (8.5-10.1); CARBON DIOXIDE LEVEL 26 MEQ/L (21-32); CHLORIDE LEVEL 108 MEQ/L (98-107); CHOLESTEROL LEVEL 157 MG/DL (<200); CHOLESTEROL RISK RATIO 2.616 (<5); FREE T4 0.81 NG/DL (0.76-1.46); GLOMERULAR FILTRATION RATE > 60.0 (>51); GLUCOSE, FASTING 86 MG/DL (70-100); HDL CHOLESTEROL 60 MG/DL (>40); LDL CHOLESTEROL 83 MG/DL (<100); NON-HDL-C 97 MG/DL; POTASSIUM SERUM 4.5 MEQ/L (3.5-5.1); SODIUM LEVEL 140 MEQ/L (136-145); TOTAL PROTEIN 6.8 GM/DL (6.4-8.2); TRIGLYCERIDES LEVEL 71 MG/DL (<150)
[2021-12-24 17:28] LABS: HEMOGLOBIN A1c 4.8 %
== END ==
LOC: M SFHCCAPE 07:27
PROVIDERS: ATTEND Physician Assistant
DX: E78.2 Mixed hyperlipidemia (principal); R79.89 Other specified abnormal findings of blood chemistry; R74.8 Abnormal levels of other serum enzymes; R73.01 Impaired fasting glucose

== ENCOUNTER → 2023-09-22 | Outpatient (REF) | payer BC ==
[~2023-09-22] MED LIST changes: +MECL-209 PO; -MECL1TAB31 PO; +TOPI-21 PO; -TOPI50TA9 PO
[2023-09-22 17:05] LABS: THYROID STIMULATING HORMONE 3.523 uIU/ML (0.55-4.78)
[2023-09-22 17:06] LABS: TOTAL 25(OH) VITAMIN D 52.4 NG/ML (20.0-100.0)
[2023-09-22 17:46] LABS: HEMOGLOBIN A1c 4.6 % (4.0-6.0)
[2023-09-22 17:57] LABS: ALBUMIN 3.6 G/DL (3.2-5.2); ALKALINE PHOSPHATASE 86 U/L (46-116); ALT/SGPT 34 U/L (7.0-40); AST/SGOT 22 U/L (<34); BILIRUBIN,TOTAL 0.6 MG/DL (0.3-1.2); BLOOD UREA NITROGEN 16 MG/DL (9-23); CALCIUM LEVEL 8.9 MG/DL (8.5-10.1); CARBON DIOXIDE LEVEL 27 MMOL/L (20-31); CHLORIDE LEVEL 107 MMOL/L (98-107); CHOLESTEROL LEVEL 139 MG/DL (<200); CHOLESTEROL RISK RATIO 2.47 (<5); CREATININE FOR GFR 0.76 MG/DL (0.55-1.30); GLOMERULAR FILTRATION RATE > 60.0 (>51); GLUCOSE, FASTING 94 MG/DL (60-100); HDL CHOLESTEROL 56.2 MG/DL (>40); LDL CHOLESTEROL 63.2 MG/DL (<100); NON-HDL-C 82.8 MG/DL; POTASSIUM SERUM 4.3 MMOL/L (3.5-5.1); SODIUM LEVEL 140 MMOL/L (136-145); TOTAL PROTEIN 6.4 G/DL (5.7-8.2); TRIGLYCERIDES LEVEL 98 MG/DL (<150)
== END ==
LOC: M SFHCCAPE 07:16
PROVIDERS: ATTEND Physician Assistant
DX: Z00.00 Encounter for general adult medical examination without abnormal findings (principal)

== ENCOUNTER → 2025-01-12 | Outpatient (REF) | payer BC ==
[~2025-01-12] MED LIST changes: +ONDA-282 PO; -ONDA4TAB6 PO; -PROZ20CA11 PO; +PROZ20CA12 PO
[2025-01-13 01:23] LABS: ESTIMATED AVERAGE GLUCOSE 94.0 MG/DL (60-110)
[2025-01-13 02:26] LABS: ALT/SGPT 34 U/L (7.0-40); AST/SGOT 26 U/L (<34); CALCIUM LEVEL 9.0 MG/DL (8.5-10.1); CARBON DIOXIDE LEVEL 27 MMOL/L (20-31); CHLORIDE LEVEL 103 MMOL/L (98-107); CHOLESTEROL LEVEL 170 MG/DL (<200); CHOLESTEROL RISK RATIO 2.76 (<5); CREATININE FOR GFR 0.72 MG/DL (0.55-1.30); GLOMERULAR FILTRATION RATE > 90.0 (>51); LDL CHOLESTEROL 83.8 MG/DL (<100); NON-HDL-C 108.6 MG/DL; POTASSIUM SERUM 4.1 MMOL/L (3.5-5.1); SODIUM LEVEL 141 MMOL/L (136-145); TRIGLYCERIDES LEVEL 124 MG/DL (<150)
== END ==
LOC: MERGE 07:19 → M SFHCCAPE 07:19
DX: Z00.00 Encounter for general adult medical examination without abnormal findings (principal)

== ENCOUNTER 2025-03-07 10:52 | Day surgery (SDC) | payer BC ==
[~2025-03-07] VITALS: Ht 167.6 cm; Wt 83.9 kg
[~2025-03-07 10:52] MED LIST changes: +LOPE2TAB12 PO; +MELO15TA28 PO
[2025-03-07] MEDS ORDERED: LIDOCAINE 2% 100 MG/5 ML SDV (FOR ANES.) As Ordered ONE (12:09)
[2025-03-07 12:29] VITALS: TEMP 98.4
[2025-03-07 12:42] VITALS: BP 131/82; O2SAT 100
== END 2025-03-07 12:48 | disposition home or self-care (01) ==
LOC: M OPP 10:52
PROVIDERS: ATTEND Internal Medicine Gastroenterology
DX: K57.30 Diverticulosis of large intestine without perforation or abscess without bleeding (principal); K64.8 Other hemorrhoids; Z86.0100 Personal history of colon polyps, unspecified; G47.30 Sleep apnea, unspecified; Z88.8 Allergy status to other drugs, medicaments and biological substances; Z91.048 Other nonmedicinal substance allergy status; Z79.899 Other long term (current) drug therapy

== ENCOUNTER → 2025-03-29 | Outpatient (CLI) | payer BC ==
[2025-03-29 17:37] LABS: FREE T4 1.01 NG/DL (0.89-1.76)
== END ==
LOC: M LAB 16:35
PROVIDERS: ATTEND Internal Medicine Gastroenterology
DX: R19.7 Diarrhea, unspecified (principal)